=== PATIENT | male | born 1965 | race Caucasian/White ===

== ENCOUNTER 2018-06-02 01:52 | Emergency (ER) | payer SELFPAY ==
[~2018-06-02] VITALS: Ht 170.2 cm; Wt 81.0 kg
[2018-06-02] MEDS ORDERED: HYDROCODONE/ACETAMINOPHEN 5/325MG TABLET PO ONE (06:45)
[2018-06-02] MEDS ORDERED: IBUPROFEN 600MG TABLET PO ONE (06:45)
[2018-06-02 08:34] VITALS: BP 142/100
== END 2018-06-02 08:37 | disposition home or self-care (01) ==
LOC: ER 01:52
DX: M79.662 Pain in left lower leg (principal); M79.89 Other specified soft tissue disorders; Z90.49 Acquired absence of other specified parts of digestive tract
CPT/HCPCS: 93971; 99284; Z7610